=== PATIENT | female | born 1990 | race Caucasian/White ===

== ENCOUNTER → 2019-01-17 | Outpatient (CLI) | payer OTHER ==
[~2019-01-17] MED LIST: ACET500; CALCA400CH PO; DIPH50; IBUP800; Labetalol HCl300 MG PO; Verotin-Gr Cap1 EACH PO
== END | disposition home or self-care (01) ==
LOC: LAB SHORT 09:42 → LAB EV 09:42
DX: J02.9 Acute pharyngitis, unspecified (principal)
CPT/HCPCS: 87081

== ENCOUNTER 2023-01-20 07:45 | Emergency (ER) | payer OTHER ==
[~2023-01-20] VITALS: Ht 160 cm; Wt 70.3 kg
[2023-01-20 08:27] VITALS: BP 126/98
[2023-01-20] MEDS ORDERED: AUVELITY ER 451 EACH PO (08:33)
[2023-01-20] MEDS ORDERED: GABA100 PO (08:34)
[2023-01-20] MEDS ORDERED: PROP10 PO (08:34)
[2023-01-20] MEDS ORDERED: Methocarbamol750 MG PO (08:35)
[2023-01-20] MEDS ORDERED: ATOR10 PO (08:36)
[2023-01-20] MEDS ORDERED: PROG100 PO (08:36)
[2023-01-20] MEDS ORDERED: DHEA PO (08:37)
[2023-01-20] MEDS ORDERED: CYCL10 PO (10:16)
== END 2023-01-20 10:50 | disposition home or self-care (01) ==
LOC: ER 07:45
DX: R07.81 Pleurodynia (principal); Z88.8 Allergy status to other drugs, medicaments and biological substances; Z91.013 Allergy to seafood; Z79.899 Other long term (current) drug therapy; Z86.16 Personal history of COVID-19
CPT/HCPCS: 71101; 96372; 99283-25; A9270; J1885

== ENCOUNTER 2024-09-17 09:16 | Day surgery (SDC) | payer OTHER ==
[2024-09-17] VITALS (8 sets, daily range): BP systolic 103–120; BP diastolic 68–91
[~2024-09-17] VITALS: Ht 160 cm; Wt 74.2 kg
[~2024-09-17 09:16] MED LIST changes: +ATOR20 PO; +AUVELITY ER 451 EACH PO; +COLLAGEN SKIN1 EACH PO; +CYCL10 PO; +CeFAZolin Sodium 2,000 MG in NS 100 ML IV SCH; +DHEA PO; +DIM; +FISH OIL 1,0001 EA10 PO; +GABA100 PO; +LAMO100 PO; +LIVER DETOX; +MAGNESIUM COMP300 MG PO; +MULTI-VITAMIN1 EAC2 PO; +MUSHROOM COMPLEX; +Methocarbamol750 MG PO; +PROBIOTIC WOME1 EACH PO; +PROG100 PO; +PROP10 PO; +[UNRECOGNIZED DRUG - OTHER] PO
[2024-09-17] MEDS ORDERED: Rocuronium Bromide 10 MG/ML 5ML Injection IV ONE (09:35)
[2024-09-17] MEDS ORDERED: FentaNYL Citrate 50 MCG/ML 5 ML Injection ONE (09:35)
[2024-09-17] MEDS ORDERED: Dexamethasone Sod Phos 10 MG/ML 1ML VIAL ONE (09:35)
[2024-09-17] MEDS ORDERED: Ondansetron HCl 2 MG / ML 2ML Vial ONE (09:35)
[2024-09-17] MEDS ORDERED: Ketorolac Tromethamine 30mg Vial ONE (09:35)
[2024-09-17] MEDS ORDERED: Bupivacaine 0.5% HCl 5 MG/ML 30MLVIAL ONE (09:56)
[2024-09-17] MEDS ORDERED: Sugammadex Sodium 200 MG/2ML SDV (100 MG/ML) ONE (12:23)
--- NOTE | 2024-09-17 12:23 | NUR ---
09/17/24 1223 CarmelaJazmin SMALL OPEN WOUND THE SIZE DIME NOTED ON THE BACK OF THE PATIENT'S RIGHT UPPER THIGH WAS NOTED WHEN PLACING THE PATIENT IN STIRRUPS, PRIOR TO INSERTING VINCENT CATHETER. WOUND WAS DRESSED WITH A 4X4 AND A TEGADERM PRIOR TO PREPPING THE PERIANAL AREA.
[2024-09-17] MEDS ORDERED: OxyCODONE 5 mg/Acetamin 325 mg TABLET PO PRN (12:45)
--- NOTE | 2024-09-17 13:06 | NUR ---
INTO STEP. PT A&OX4. PT REPORTS 5/10 ABDOMINAL PAIN AND "SORE THROAT." INCISION X 2 WITH EXOFEN C/D/I. ROLANDO PAD IN PLACE WITH SCANT AMOUNT OF SANGINOUS DRAINAGE. PT REQUESTED THAT "GISELA" BE BROUGHT BACK TO STEP. PT VERY TEARFUL WHEN HE ARRIVED AT BEDSIDE.
--- NOTE | 2024-09-17 13:30 | NUR ---
Pt reports 6/10 abdominal/incisional pain. Tolerating PO fluids and food-denies nausea. Pt asked if she would like a "pain pill" and pt agreed. When attempting to administer Percocet, pt refused med. Pt states that she told admitting RN and Wondertian that she didn't want any "pain meds." Pt states that she is irritated that I offered it to her. This RN attempted to console pt. Pt and spouse education on typical post-op pain management. Pt request "Tylenol" request granted-see emar.
--- NOTE | 2024-09-17 14:00 | NUR ---
Reviewed discharge instructions with pt and her spouse. Both verbalize understanding. Pt ambulated to brp and able to void without difficulty. Pt discharged to home, out via wheelchair with belongings and discharge instructions on hand.
== END 2024-09-17 14:00 | disposition home or self-care (01) ==
LOC: ORSCMMR 09:16 → ORD 15:30 → ORSCMMR 15:30
PROVIDERS: Obstetrics & Gynecology
PROC: 0UT74ZZ Resection of Bilateral Fallopian Tubes, Percutaneous Endoscopic Approach (ICD-10-PCS; principal; 2024-09-17 11:00)
DX: Z30.2 Encounter for sterilization (principal); N80.30 Endometriosis of pelvic peritoneum, unspecified; E78.5 Hyperlipidemia, unspecified; F41.8 Other specified anxiety disorders; F90.9 Attention-deficit hyperactivity disorder, unspecified type; Z79.899 Other long term (current) drug therapy
CPT/HCPCS: 88302; A9270; J0690; J1100; J1885; J2405; J2704; J3010; J7120